=== PATIENT | male | born 1985 | race Caucasian/White ===

== ENCOUNTER 2021-01-01 04:50 | Emergency (ER) | payer MEDICAID ==
[~2021-01-01] VITALS: Ht 177.8 cm; Wt 99.3 kg
[2021-01-01 04:59] VITALS: BP 113/71
--- NOTE | 2021-01-01 05:00 | NUR ---
TO BED AMBULATORY
--- NOTE | 2021-01-01 05:09 | NUR ---
Dr. Hendrix with pt for MSE
[2021-01-01] MEDS ORDERED: ACETAMINOPHEN EXTRA STRENGTH 500 MG TAB ONE (05:13)
[2021-01-01] MEDS ORDERED: ACETAMINOPHEN EXTRA STRENGTH 500 MG TAB PO ONE (05:15)
[2021-01-01 05:27] VITALS: BP 113/71
--- NOTE | 2021-01-01 05:27 | NUR ---
flu, [place], strep swabs collected and sent to lab.
--- NOTE | 2021-01-01 06:25 | NUR ---
d/c with [facility]. d/c education given. opportunity to ask questions given and answered. no rx given. encouraged pt to follow up with PCP.
== END 2021-01-01 06:25 | disposition home or self-care (01) ==
LOC: MED 04:50
DX: M79.10 Myalgia, unspecified site (principal); R05 Cough; R06.02 Shortness of breath; Z20.822 Contact with and (suspected) exposure to COVID-19
CPT/HCPCS: 87081; 87804; 99283